=== PATIENT | female | born 1960 | race Caucasian/White ===

== ENCOUNTER → 2016-08-21 | Outpatient (CLI) | payer OTHER ==
--- NOTE | 2016-08-21 15:25 | DI ---
MRI LOW EXTREMITY W/O CN,08/21/2016 11:04 AM: Clinical History: Left ankle pain. Previous Exam: None at this facility. Findings: Multiplanar MR images are obtained through the left ankle without contrast. Bony and metallic bloomin g artifact limits evaluation. There is no evidence of talar dome defect. No definite fractures are identified. The Achilles tendon is normal. The peroneal tendons are intact. The flexor and extensor tendons are also intact. There is some mild thickening and increased signal near the attachment of the plantar fascia most con sistent with plantar fasciitis. Impression: Thickening and increased signal of the posterior plantar fascia consistent with plantar fasciitis.
== END ==
LOC: MRI 10:56
PROVIDERS: ATTEND Podiatrist Foot & Ankle Surgery
DX: M72.2 Plantar fascial fibromatosis (principal); M79.672 Pain in left foot
CPT/HCPCS: 73718

== ENCOUNTER → 2016-09-28 | Outpatient (CLI) | payer OTHER ==
[2016-09-28 09:23] LABS: BASOPHILS # (AUTO) 0.04 10*3/UL; BASOPHILS % (AUTO) 0.7 % (0-1); EOSINOPHILS # (AUTO) 0.23 10*3/UL; HEMATOCRIT 45.8 % (37.0-47.0); HEMOGLOBIN 15.3 g/dL (12.0-16.0); LYMPHOCYTES # (AUTO) 1.49 10*3/uL; MEAN CORPUSCULAR HEMOGLOBIN 30.4 PG (27-31); MEAN CORPUSCULAR HGB CONC 33.4 g/dL (33-37); MEAN CORPUSCULAR VOLUME 90.9 FL (81-99); MEAN PLATELET VOLUME 9.3 FL (7.4-12.2); MONOCYTES # (AUTO) 0.41 10*3/UL (0.3-0.8); NEUTROPHILS # (AUTO) 3.64 10*3/UL; NEUTROPHILS % (AUTO) 62.5 % (50-80); RED BLOOD COUNT 5.04 10^6/uL (4.20-5.40)
[2016-09-28 09:24] LABS: PLATELET MORPHOLOGY COMMENT NORMAL MORPHOLOGY (NORM); RBC MORPHOLOGY COMMENT NORMAL MORPHOLOGY (NORM); WBC MORPHOLOGY COMMENT NORMAL MORPHOLOGY (NORM)
[2016-09-28 09:33] LABS: BLOOD UREA NITROGEN 20 mg/dL (7-22); BUN/CREATININE RATIO 22.22 (6-20); CALCIUM 8.8 mg/dL (8.7-10.7); CHOL/HDL RATIO 4.55 RATIO (0-4.0); EST GLOMERULAR FILTRATION > 60 (>60 ml/min/1.73m(2)); HDL CHOLESTEROL 34 mg/dL (40-150); SERUM ALBUMIN 4.1 g/dL (3.5-4.8); SERUM CHOLESTEROL 155 mg/dL (120-200)
[2016-09-30 08:05] LABS: VITAMIN D 25-HYDROXY 58.8 NG/ML (30-100)
== END ==
LOC: LAB 09:11
PROVIDERS: ATTEND Nurse Practitioner Psychiatric/Mental Health
DX: F45.42 Pain disorder with related psychological factors (principal); F32.2 Major depressive disorder, single episode, severe without psychotic features
CPT/HCPCS: 36415; 80053; 80061; 82306; 82746; 84443; 85025